=== PATIENT | female | born 1995 | race Caucasian/White ===

== ENCOUNTER 2022-09-19 18:35 | Emergency (ER) | payer OTHER, SELFPAY ==
[2022-09-19 18:38] VITALS: BP 133/83; PULSE 99; RESP 22; TEMP 37; O2SAT 98; BMI 21.3
--- NOTE | 2022-09-19 19:27 | ED.DENTAL ---
HPI - Dental/Oral <Priscilla Huynh PA-C - Last Filed: 09/19/22 19:34> General Chief complaint: Dental/Oral Stated complaint: tooth ache poss abcess Time Seen by Provider: 09/19/22 19:13 Source: patient Mode of arrival: Family Vehicle History of Present Illness HPI Narrative: Patient is a 27-year-old female presenting for evaluation of left lower cheek pain and swelling for the last 3 days. She states that she is 2 broken teeth in that left lower jaw. She notes that she feels a painful swelling in her left lower cheek which seems to be getting bigger.. She denies any difficulty swallowing, denies fever, body aches or chills. She does note an allergy to penicillin, but notes it only happens when she receives PCN IV and not when she receives a pcn shot. She also notes she has had amoxicillin in the past for a different dental issue which did not cause her any rash or problems. Related Data Previous Rx's Medication Instructions Recorded amoxicillin 875 mg-potassium 1 tab PO Q12H #20 tabs 09/19/22 clavulanate 125 mg tablet Allergies Allergy/AdvReac Type Severity Reaction Status Date / Time Penicillins Allergy Rash Verified 09/19/22 18:45 Review of Systems <Priscilla Huynh PA-C - Last Filed: 09/19/22 19:34> Review of Systems Narrative: Per HPI Patient History <Priscilla Huynh PA-C - Last Filed: 09/19/22 19:34> Social History Smoking Status: Never smoker Smoking Status: Never smoker alcohol intake frequency: 0-2 drinks per day Substance Use Type: marijuana Exam <Priscilla Huynh PA-C - Last Filed: 09/19/22 19:34> Initial Vital Signs Initial Vital Signs: Vital Signs Temperature 98.6 F 09/19/22 18:38 Pulse Rate 99 H 09/19/22 18:38 Respiratory Rate 22 09/19/22 18:38 Blood Pressure 133/83 09/19/22 18:38 Pulse Oximetry 98 09/19/22 18:38 Oxygen Delivery Method Room Air 09/19/22 18:38 GENERAL: 27 year old patient appears stated age. Well-developed patient, in no acute distress. HEAD: Atraumatic. Normocephalic. EYES: Pupils equal round. No scleral icterus. No injection or drainage. ENT: Throat with mild erythema, no tonsillar hypertrophy or exudate. Airway patent. Uvula midline. Swelling, erythema and tenderness on left lower inside of cheek. No exudate noted. No pain with opening jaw NECK: Trachea midline. Tenderness and mild swelling of lymph node in left anterior cervical chain, RESPIRATORY: No increased work of breathing, patient is speaking without signs of respiratory distress NEURO: AOx3. SKIN: No rash or erythema of visible areas <Mane Ascencio DO - Last Filed: 09/20/22 05:55> Initial Vital Signs Initial Vital Signs: Vital Signs Temperature 98.6 F 09/19/22 18:38 Pulse Rate 99 H 09/19/22 18:38 Respiratory Rate 22 09/19/22 18:38 Blood Pressure 133/83 09/19/22 18:38 Pulse Oximetry 98 09/19/22 18:38 Oxygen Delivery Method Room Air 09/19/22 18:38 Course <Priscilla Huynh PA-C - Last Filed: 09/19/22 19:34> Vital Signs Vital signs: Vital Signs - 8 hr 09/19/22 18:38 Temperature 98.6 F Pulse Rate 99 H Respiratory Rate 22 Blood Pressure 133/83 Pulse Oximetry 98 Oxygen Delivery Method Room Air <Mane Ascencio DO - Last Filed: 09/20/22 05:55> Vital Signs Vital signs: Vital Signs - 8 hr 09/19/22 18:38 Temperature 98.6 F Pulse Rate 99 H Respiratory Rate 22 Blood Pressure 133/83 Pulse Oximetry 98 Oxygen Delivery Method Room Air MDM - Dental/Oral <Priscilla Hyunh PA-C - Last Filed: 09/19/22 19:34> [facility] Narrative Medical decision making narrative: Patient is a 27-year-old female presenting for evaluation of left lower jaw swelling for the last 3 days. She denies fever, body aches or chills. She denies pain with opening her mouth. Multiple etiologies for patient's symptoms considered including, but not limited to: Erik's angina, trismus, TMJ, peritonsillar abscess Prior Charts reviewed: None differential diagnoses Discussed with patient that we will treat with antibiotic for oral cellulitis. I will treat with Augmentin since she has not had any adverse reaction to amoxicillin in the past. Differential diagnoses of Erik's angina, peritonsillar abscess or unlikely because her physical exam showed midline uvula, and no swelling in her neck other than an isolated enlarged lymph node on the left anterior side. TMJ is unlikely because she has no pain with opening her jaw. Recommend she follow up with a dentist for further evaluation . She is agreeable to plan of care. We discussed that she should return for further evaluation if she develops swelling in her neck, difficulty swallowing or breathing or other concerning signs or symptoms. Findings and discharge diagnosis discussed with patient/family followed by verbalization of understanding Return precautions discussed with patient/family whom verbalize understanding of diagnosis and plan ations for ED re-evaluation and additional outpatient follow up Discharge Plan Departure Patient Disposition: Home Clinical Impression: Abscess or cellulitis, oral soft tissue Activity Restrictions/Additional Instructions: You were seen today for possible abscess and cellulitis in your left lower cheek. I recommend that you treat with warm compresses, ibuprofen and Tylenol alternating and antibiotic prescribed today. I recommend that you follow up with dentist quickly to have this pulled reduce the risk of recurrence. Please return to the emergency department if you develop increased swelling in your neck, fever, body aches or chills. Thank you for coming inferior care today. Prescriptions: New amoxicillin-pot clavulanate 875-125 mg tablet 1 tab PO Q12H Qty: 20 0RF Stand Alone Forms: Patient Portal/API <Mane Ascencio DO - Last Filed: 09/20/22 05:55> [facility] Attestation: I was immediately available in the department for consultation. Documentation has been reviewed. I agree with assessment and plan.
== END 2022-09-19 19:33 | disposition home or self-care (01) ==
PROVIDERS: Emergency Provider Physician Assistant
DX: K12.2 Cellulitis and abscess of mouth (principal)
CPT/HCPCS: 99281